=== PATIENT | female | born 1930 | race Caucasian/White ===

== ENCOUNTER 2016-05-07 16:57 | Inpatient (IN) | payer OTHER ==
[~2016-05-07] VITALS: Ht 162.6 cm; Wt 59.5 kg
[~2016-05-07 16:57] MED LIST: ADVIL,NUPRIN,M200 MG PO; BENICAR20 MG PO; BENICAR40 MG PO; CIPRO500 MG PO; CLONIDINE HCL0.1 MG PO; COZAAR50 MG PO; DILANTIN100 MG PO; Flexeril PO; IBUPROFEN200 M1 PO; LEVETIRACETAM500 MG PO; LEVOTHYROXINE25 MCG; LEVOTHYROXINE25 MCG PO; LEVOXYL25 MCG PO; LIDODERM 5% P1 PATCH TD; LO-DOSE ASPIRIN81 M1 PO; LOSARTAN POTASS50 MG PO; LOW-DOSE ASPIRI81 MG PO; NORVASC5 MG PO; OMEGA Q PLUS PO; PRAVACHOL40 MG PO; PROLIA60 MG/1 ML SC; SAM-E400 MG PO; ZOCOR40 MG PO
[2016-05-07 17:19] LABS: MCH 32.2 PG (29.0-34.0); MCV 94.9 FL (83-99); MEAN PLAT.VOLUME 11.2 uM^3 (9.5-12.4); PLATELET COUNT 169 K/uL (156-360); RBC DIS.WIDTH-CV 12.1 % (11.8-14.6); RED BLOOD COUNT 4.53 M/uL (3.80-5.20); WHITE BLOOD COUNT 6.2 K/uL (4.1-10.2)
[2016-05-07 17:28] LABS: PROTHROMBIN TIME 10.2 (9.2-11.2)
[2016-05-07 17:30] LABS: AMYLASE 67 IU/L (1-118); CHLORIDE 103 mEq/L (99-109); POTASSIUM 3.7 mEq/L (3.7-5.4)
[2016-05-07 17:31] LABS: SODIUM 139 mEq/L (136-147)
[2016-05-07 17:32] LABS: GLUCOSE 104 mg/dL (70-99)
[2016-05-07 17:34] LABS: ANION GAP 7 MEQ/L (2-14)
[2016-05-07 17:36] LABS: GFR ESTIMATE (CALCULATED) 50 mL/min/
[2016-05-07 17:37] LABS: UREA NITROGEN (BUN) 18 mg/dL (9-23)
[2016-05-07 17:39] LABS: LIPASE 31 U/L (1.0-51.0)
[2016-05-07 17:42] LABS: TROP-I INTERPRETATION NEGATIVE; TROPONIN-I 0.02 ng/mL (0.0-0.30)
[2016-05-07] MEDS ORDERED: COZAAR100 MG PO (19:06)
[2016-05-07] MEDS ORDERED: CORICIDIN HB1 TABLET PO (19:07)
[2016-05-07 20:56] LABS: PROLACTIN 93.3 NG/ML
[2016-05-07 21:20] VITALS: BP 187/86
[2016-05-08] VITALS (7 sets, daily range): BP systolic 129–165; BP diastolic 61–77
[2016-05-08 06:01] LABS: ADD MIUA? NO; BILIRUBIN NEGATIVE; BLOOD NEGATIVE; COLOR YELLOW ((YELLOW)); GLUCOSE (STRIP) NEGATIVE; KETONES NEGATIVE; LEUKOCYTES NEGATIVE; NITRITE NEGATIVE; PROTEIN (STRIP) TRACE; SPECIFIC GRAVITY 1.043 (1.000-1.030); UROBILINOGEN 0.2 MG/DL (0.2-1.0)
[2016-05-08 06:18] LABS: UCUL ADDED? NO
[2016-05-08 06:53] LABS: AMPHETAMINES QUANT VALUE 0 NG/ML; BARBITUATES QUANT VALUE 0 NG/ML; BENZODIAZEPINES, URINE SCREEN POSITIVE (200 ng/mL); MARIJUANA QUANT VALUE 0 NG/ML; OPIATES QUANTITATIVE VALUE 0 NG/ML; PHENCYCLIDINE QUANT VALUE 0 NG/ML
[2016-05-08 07:03] LABS: ALKALINE PHOSPHATASE 75 IU/L (3-129); ANION GAP 9 MEQ/L (2-14); CHLORIDE 99 MEQ/L (99-109); GFR ESTIMATE (CALCULATED) > 59 mL/min/; GLUCOSE 100 mg/dL (70-99); HDL CHOLESTEROL 50 MG/DL (Desirable>=50); LDL CHOLESTEROL 163 mg/dL (Desirable<100); NON-HDL CHOLESTEROL 179 mg/dL (Desirable<160); POTASSIUM 4.2 MEQ/L (3.7-5.4); SAMPLE HEMOLYSIS CHECK 0; SAMPLE ICTERIC CHECK 0; SAMPLE LIPEMIA CHECK 0; TOTAL CHOLESTEROL 229 mg/dL (Desirable<200); TRIGLYCERIDES 80 MG/DL (Normal: <150); UREA NITROGEN (BUN) 17 mg/dL (9-23)
[2016-05-08 07:04] LABS: SODIUM 132 MEQ/L (136-147)
[2016-05-08] MEDS ORDERED: AMLODIPINE BESYL5 MG PO (21:06)
[2016-05-08] MEDS ORDERED: CLOPIDOGREL75 MG PO (21:06)
[2016-05-08] MEDS ORDERED: PRAVASTATIN SOD40 MG PO (21:06)
[2016-05-08] MEDS ORDERED: LOSARTAN POTAS100 MG PO (21:06)
[2016-05-08] MEDS ORDERED: TRAMADOL HCL50 MG PO (21:07)
[2016-05-08] MEDS ORDERED: OYSTER SHELL 51 EACH PO (21:07)
[2016-05-08] MEDS ORDERED: CLONAZEPAM0.5 MG PO (21:07)
[2016-05-09 00:06] VITALS: BP 130/74
[2016-05-09 04:13] VITALS: BP 153/72
[2016-05-09 08:01] VITALS: BP 132/62
== END 2016-05-09 12:51 | disposition home health service (06) | DRG 101 ==
LOC: EME 16:57 → EDOF 19:12 → 4EAST 21:02 → 5EAST 05-08 20:16
PROVIDERS: Family Medicine
DX: G40.909 Epilepsy, unspecified, not intractable, without status epilepticus (principal); I10 Essential (primary) hypertension; E78.5 Hyperlipidemia, unspecified; E03.9 Hypothyroidism, unspecified; I73.9 Peripheral vascular disease, unspecified; G62.9 Polyneuropathy, unspecified; F03.90 Unspecified dementia, unspecified severity, without behavioral disturbance, psychotic disturbance, mood disturbance, and anxiety; M47.896 Other spondylosis, lumbar region; N39.3 Stress incontinence (female) (male); Z79.82 Long term (current) use of aspirin; Z79.02 Long term (current) use of antithrombotics/antiplatelets; Z91.14 Patient's other noncompliance with medication regimen
CPT/HCPCS: 70450; 70496; 70498; 70551; 71010; 80048; 80053; 80061; 81003; 82150; 83690; 84146; 84439; 84443; 84484; 85027; 85610; 85730; 93005; 94799; 99281; 99285; J0360; J1165; J2997

== ENCOUNTER 2017-02-10 16:54 | Emergency (ER) | payer OTHER ==
[~2017-02-10] VITALS: Ht 162.6 cm; Wt 58.9 kg
[~2017-02-10 16:54] MED LIST changes: +AMLODIPINE BESYL5 MG PO; +CLONAZEPAM0.5 MG PO; +CLOPIDOGREL75 MG PO; +CORICIDIN HB1 TABLET PO; +COZAAR100 MG PO; +LOSARTAN POTAS100 MG PO; +OYSTER SHELL 51 EACH PO; +PRAVASTATIN SOD40 MG PO; +TRAMADOL HCL50 MG PO
[2017-02-10 17:54] LABS: CHLORIDE 111 mEq/L (99-109); POTASSIUM 4.1 mEq/L (3.7-5.4); SODIUM 144 mEq/L (136-147)
[2017-02-10 17:56] LABS: GLUCOSE 97 mg/dL (70-99)
[2017-02-10 17:57] LABS: ANION GAP 8 MEQ/L (2-14)
[2017-02-10 18:00] LABS: GFR ESTIMATE (CALCULATED) 38 mL/min/
[2017-02-10 18:01] LABS: UREA NITROGEN (BUN) 21 mg/dL (9-23)
[2017-02-10 18:02] LABS: HEMATOCRIT 40.2 % (36.0-46.0); MCH 33.3 PG (29.0-34.0); MCHC 34.3 G/DL (30.0-36.0); MCV 97.1 FL (83-99); MEAN PLAT.VOLUME 11.6 uM^3 (9.5-12.4); PLATELET COUNT 174 K/uL (156-360); RBC DIS.WIDTH-CV 11.9 % (11.8-14.6); RBC DIS.WIDTH-SD 42.5 % (39-53); RED BLOOD COUNT 4.14 M/uL (3.80-5.20); WHITE BLOOD COUNT 9.5 K/uL (4.1-10.2)
[2017-02-10] MEDS ORDERED: PERCOCET 5/31 TABLET PO (21:07)
[2017-02-10 22:29] VITALS: BP 168/65
== END 2017-02-10 22:30 | disposition home or self-care (01) ==
LOC: EME 16:54
PROVIDERS: Emergency Medicine
PROC: 2W38X1Z Immobilization of Right Upper Extremity using Splint (ICD-10-PCS; principal; 2017-02-10)
DX: S52.611A Displaced fracture of right ulna styloid process, initial encounter for closed fracture (principal); S52.501A Unspecified fracture of the lower end of right radius, initial encounter for closed fracture; W18.30XA Fall on same level, unspecified, initial encounter; Y93.H2 Activity, gardening and landscaping; I10 Essential (primary) hypertension; K21.9 Gastro-esophageal reflux disease without esophagitis; Z86.718 Personal history of other venous thrombosis and embolism; Z79.82 Long term (current) use of aspirin; Z88.8 Allergy status to other drugs, medicaments and biological substances
CPT/HCPCS: 73070; 73090; 73100; 80048; 85027; 99281; 99284; J3010

== ENCOUNTER 2017-08-04 14:44 | Observation (INO) | payer OTHER ==
[~2017-08-04] VITALS: Ht 162.6 cm; Wt 57.4 kg
[~2017-08-04 14:44] MED LIST changes: +PERCOCET 5/31 TABLET PO
[2017-08-04 15:22] LABS: BASOPHIL (%) 0.8 % (0-1); BASOPHIL COUNT 0.1 K/uL (0-0.1); EOSINOPHIL (%) 2.5 % (0-5); EOSINOPHIL COUNT 0.2 K/uL (0-0.3); HEMATOCRIT 41.3 % (36.0-46.0); HEMOGLOBIN 13.9 G/DL (11.9-15.5); IMMATURE GRANULOCYTE (%) 0.3 % (0.0-0.7); LYMPHOCYTE (%) 15.3 % (15-42); LYMPHOCYTE COUNT 0.9 K/uL (1.0-2.8); MCH 32.8 PG (29.0-34.0); MCHC 33.7 G/DL (30.0-36.0); MCV 97.4 FL (83-99); MONOCYTE (%) 8.7 % (3-12); MONOCYTE COUNT 0.5 K/uL (0-0.8); NEUTROPHIL (%) 72.4 % (45-76); NEUTROPHIL COUNT 4.3 K/uL (1.8-6.4); PLATELET COUNT 138 K/uL (156-360); RBC DIS.WIDTH-SD 43.2 % (39-53); RED BLOOD COUNT 4.24 M/uL (3.80-5.20)
[2017-08-04 15:31] LABS: PTT 23.9 SEC (25-37)
[2017-08-04 15:34] LABS: ALBUMIN 4.1 g/dL (3.2-4.8); CHLORIDE 107 mEq/L (99-109); POTASSIUM 4.3 mEq/L (3.7-5.4); SODIUM 141 mEq/L (136-147)
[2017-08-04 15:37] LABS: GLUCOSE 122 mg/dL (70-99); TOTAL PROTEIN 6.9 g/dL (6.4-8.3)
[2017-08-04 15:38] LABS: TOTAL BILIRUBIN 0.7 mg/dL (0.0-1.0)
[2017-08-04 15:40] LABS: ALKALINE PHOSPHATASE 65 IU/L (3-129); CREATININE 1.1 mg/dL (0.6-1.3); GFR ESTIMATE (CALCULATED) 50 mL/min/
[2017-08-04 15:41] LABS: UREA NITROGEN (BUN) 20 mg/dL (9-23)
[2017-08-04 15:42] LABS: AST (GOT) 19 IU/L (2-34)
[2017-08-04 15:43] LABS: ALT (GPT) 14 IU/L (3-49)
[2017-08-04 15:44] LABS: LIPASE 20 U/L (1.0-51.0)
[2017-08-04 16:23] LABS: APPEARANCE CLEAR ((CLEAR)); BILIRUBIN NEGATIVE; BLOOD NEGATIVE; COLOR STRAW ((YELLOW)); GLUCOSE (STRIP) NEGATIVE; KETONES NEGATIVE; LEUKOCYTES TRACE; NITRITE NEGATIVE; PROTEIN (STRIP) NEGATIVE; SPECIFIC GRAVITY 1.018 (1.000-1.030); UROBILINOGEN 0.2 MG/DL (0.2-1.0)
[2017-08-04 16:52] LABS: BACTERIA NONE SEEN /HPF; EPITHELIAL CELLS RARE /HPF; MUCUS TRACE /LPF; RED BLOOD CELLS 0-5 /HPF (0-5)
[2017-08-04 17:04] LABS: TROP-I INTERPRETATION NEGATIVE; TROPONIN-I < 0.01 ng/mL (0.0-0.30)
[2017-08-04] MEDS ORDERED: COZAAR100 MG PO (19:21)
[2017-08-04] MEDS ORDERED: DILANTIN100 MG PO (19:24)
[2017-08-04 21:58] VITALS: BP 194/79
[2017-08-04 22:00] VITALS: BP 170/68
[2017-08-04 23:46] VITALS: BP 148/59
[2017-08-05] LABS: TROP-I INTERPRETATION NEGATIVE; TROPONIN-I < 0.01 ng/mL (0.0-0.30)
[2017-08-05 03:34] VITALS: BP 148/65
[2017-08-05 05:37] LABS: HEMATOCRIT 37.6 % (36.0-46.0); HEMOGLOBIN 12.7 G/DL (11.9-15.5); MCH 32.6 PG (29.0-34.0); MCHC 33.8 G/DL (30.0-36.0); MCV 96.4 FL (83-99); PLATELET COUNT 159 K/uL (156-360); RBC DIS.WIDTH-CV 12.2 % (11.8-14.6); RBC DIS.WIDTH-SD 42.9 % (39-53); WHITE BLOOD COUNT 9.4 K/uL (4.1-10.2)
[2017-08-05 06:08] LABS: TROP-I INTERPRETATION NEGATIVE; TROPONIN-I 0.01 ng/mL (0.0-0.30)
[2017-08-05 06:49] LABS: CHLORIDE 107 MEQ/L (99-109); CREATININE 0.9 MG/DL (0.6-1.3); GFR ESTIMATE (CALCULATED) > 59 mL/min/; GLUCOSE 96 mg/dL (70-99); SODIUM 140 MEQ/L (136-147); UREA NITROGEN (BUN) 16 mg/dL (9-23)
[2017-08-05 08:23] VITALS: BP 177/76
[2017-08-05 11:47] VITALS: BP 158/70
[2017-08-05] MEDS ORDERED: ASPIR-LOW81 MG PO (14:34)
[2017-08-05 15:27] VITALS: BP 125/60
== END 2017-08-05 17:10 | disposition home or self-care (01) ==
LOC: EME 14:44 → EDOF 19:17 → 5WEST 19:17 → EDOF 19:17 → ENRESERV 19:19 → 5WEST 21:42
PROVIDERS: Hospitalist; Physician Assistant
DX: R07.9 Chest pain, unspecified (principal); I10 Essential (primary) hypertension; E78.5 Hyperlipidemia, unspecified; E03.9 Hypothyroidism, unspecified; G40.909 Epilepsy, unspecified, not intractable, without status epilepticus; Z86.73 Personal history of transient ischemic attack (TIA), and cerebral infarction without residual deficits; I73.9 Peripheral vascular disease, unspecified; F03.90 Unspecified dementia, unspecified severity, without behavioral disturbance, psychotic disturbance, mood disturbance, and anxiety; D69.6 Thrombocytopenia, unspecified; M85.80 Other specified disorders of bone density and structure, unspecified site; M48.00 Spinal stenosis, site unspecified; Z90.49 Acquired absence of other specified parts of digestive tract; Z86.011 Personal history of benign neoplasm of the brain; Z82.49 Family history of ischemic heart disease and other diseases of the circulatory system; Z83.3 Family history of diabetes mellitus; Z88.8 Allergy status to other drugs, medicaments and biological substances; Z88.1 Allergy status to other antibiotic agents
CPT/HCPCS: 71275; 74174; 80048; 80053; 80185; 81003; 83690; 84484; 85025; 85027; 85610; 85730; 86850; 86900; 86901; 93005; 99281; 99284; G0378; J1644; J2405; J3010; J7040